=== PATIENT | female | born 1990 | race Caucasian/White ===

== ENCOUNTER 2022-10-16 15:48 | Emergency (ER) | payer BC, SELFPAY ==
--- OUTSIDE RECORDS SUMMARY | 2022-10-16 16:03 | XMS REPORT | Continuity of Care Document ---
:1990 Author Organization [facility] t Address [address] [facility]. [address] [place] [address] Care Team Providers Name Role Phone Asked, No Pcp Primary Care Physician Unavailable Bea BALLARD, Naima Tapia Attending Clinician Poncho BALLARD, Lilian Burks Attending Clinician [phone] ARBEN CRUZ Attending Clinician Unavailable Payers Payer Name Policy Type Policy Number Effective Date Expiration Date S ource Problems This patient has no known problems. Allergies, Adverse Reactions, Alerts This patient has no known allergies or adverse reactions. Family History Family Member Diagnosis Comments Start Date Stop Date Source Maternal grandfather Lung cancer Met [facility] Paternal grandmother Diabetes Meth [facility] Natural father Diabetes [facility] Social History Social Habit Start Date Stop Date Quantity Comments Source ASSERTION [facility] Gender identity [facility] Sexual orientation [facility] Alcohol intake 2022-09-14 2022-09-14 Current drinker [facility] 00:00:00 00:00:00 of [facility] (finding) History of Social 2022-09-14 2022-09-[address] function 00:00:00 00:00:00 Hospital Tobacco use and 2022-02-01 2022-02-01 Smokeless [facility] exposure 00:00:00 00:00:00 tobacco non-user Hospital Alcohol Comment 2018-04-12 2018-04-12 rarely [facility] 00:00:00 00:00:00 Hospital Sex Assigned At [birth year] [facility] 00:00:00 00:00:00 [facility] Smoking Status Start Date Stop Date Source Never smoked tobacco [facility] Medications Ordered Filled Start Stop Current Ordering Indication Dosage Frequency Signature Comments Components Source Medication Medication Date Date Medication? Clinician (SIG) Name Name ,ca Yes Take by Met jiang lc61/iron/f 6-[address] olic/dha 12:09: Hospita (WOMEN'S 20 l PLUS DHA ORAL) BLISOVI 2021- No 1{tbl} QD Take 1 Me thodi FE 1 mg-20 3-16 -[address] mcg (24)/75 00:00: 00:00 mouth Hosp anrdés mg (4) per 00 :00 daily. l tablet Vital Signs Vital Name Observation Time Observation Value Comments Source Body weight 2022-09-14 17:06:00 81.647 kg [facility] BMI 2022-09-14 17:06:00 30.90 kg/m2 [facility] Systolic blood 2022-09-14 17:06:00 117 mm[Hg] [facility] pressure Diastolic blood 2022-09-14 17:06:00 76 [facility] Heart rate 2022-09-14 17:06:00 96 /min [facility] Body height 2022-09-14 17:06:00 162.6 cm [facility] Procedures Procedure Date / Time Performing Clinician Source Performed POC , URINE 2022-09-15 15:56:03 Lilian Isaac [facility] , INITIAL 2022-09-14 17:36:00 Lilian Isaac [facility] SCREENING PROFILE [facility] THYROID CASCADE 2022-09-14 17:36:00 Lilian Isaac ospital PANEL/REFLEX Vitaliy INTERPRETATION 2022-09-14 17:36:00 Lilian Isaac ospital Vitaliy MICROSCOPIC EXAMINATION 2022-09-14 17:36:00 Lilian Isaac [facility] US TRANSVAGINAL 2022-09-14 17:30:04 Lilian Isaac [facility] GYNECOLOGIC PAP TEST 2022-02-01 20:59:00 Lilian Isaac [facility] (IMAGE-GUIDED)Vitaliy LIQUID-BASED PREPARATION AND HUMAN PAPILLOMAVIRUS (HPV) (APTIMA) WITH REFLEX TO HPV GENOTYPES 16 AND 18,45 Plan of Care Planned Activity Planned Date Details Comments Source Future Scheduled 2022-10-15 COVID-19 [facility] - Pfizer series) [code = COVID-19 VACCINE (3 - Pfizer series)] Future Scheduled 2022-10-15 INFLUENZA VACCINE Method [facility] Test 13:08:53 [code = INFLUENZA VACCINE] Future Scheduled 2022-10-15 Screening for [facility] Test 13:08:53 malignant neoplasm of cervix (procedure) [code = 007961552] Encounters Start End Encounter Admission Attending Care Care Encounter Source Date/Time Date/Time Type Type Clinicians Facility Department ID 2022-09-22 2022-09-22 Carrollrijoanne Figueredo, 1.2.840.1 [id number] Methodi 00:00:00 00:00:00 Orders Naima [address]563.1.[address] [place] 3.430.2.7 Hospit a .3.543744 l .8 2022-09-14 2022-09-14 Ancillary Poncho, 1.2.840.1 [id number] Methodi 12:20:00 12:50:00 Procedure Lilian 64514.1.1 657 [address] t Vitaliy 3.430.2.7 Hospit a .3.061562 l .8 2022-09-14 2022-09-14 Office Barcgrayson, 1.2.840.1 [id number] Methodi 12:00:00 12:42:38 Visit Lilian [address]5546.1.[address] Vitaliy 3.430.2.7 Hospit a .3.884635 l .8 2022-09-14 2022-09-14 Outpatient BARCIO, [facility] [id number] [address] [place] 00:00:00 00:00:[address] LILIAN [address] 2022-09-14 2022-09-14 Outpatient BARCIO, [facility] [id number] [address] [place] 00:00:00 00:00:[address]IL[address] 2022-09-14 2022-09-14 Travel 1.2.840.1 1.2.668.338 [id number] Methodi 00:00:00 00:00:[address] 3.430.2.7 0.2.7.3.698 Ho spita .3.874119 084.8 l .8 2022-09-01 2022-09-01 Travel 1.2.840.1 1.2.166.236 [id number] Methodi 00:00:00 00:00:[address] 3.430.2.7 0.2.7.3.698 Ho spita .3.141018 084.8 l .8 2022-02-01 2022-02-01 Office Gryesongrayson, .2.840.1 [id number] Methodi 14:30:00 14:39:53 Visit Lilian 82243.1.[address] Vitaliy 3.430.2.7 Hospit a .3.711098 l .8 2022-02-01 2022-02-01 Outpatient [facility] [id number] [place] 00:00:00 00:00:[address] LILIAN [address] 2022-02-01 2022-02-01 Travel 1.2.840.1 1.2.209.530 [id number] Methodi 00:00:00 00:00:[address] 3.430.2.7 0.2.7.3.698 Ho spita .3.625405 084.8 l .8 2021-08-03 2021-08-03 Outpatient [facility] [id number] [address] [place] 00:00:00 00:00:00 ARBEN Rhodes [facility] 2020-08-04 2020-08-04 Outpatient [facility] 00:00:00 00:00:00 - 3 Results Test Description Test Time Test Comments Results Result Comments Source Microscopic Examination 2022-09-16 14:36:00 Test Item Value Reference Range Interpretation Comme nts WBC, UA (test code = None seen See_Comment [Autom ated message] The 5821-4) system which ge nerated this result tra nsmitted reference range : 0 - 5 /hpf. The refer ence range was not used to interpret this result as normal/abnormal . RBC, UA (test code = None seen See_Comment [Autom ated message] The 30127-6) system which ge nerated this result tra nsmitted reference range : 0 - 2 /hpf. The refer ence range was not used to interpret this result as normal/abnormal . Epithelial cells (non 0-10 See_Comment [Auto mated message] The renal) (test code = system w [facility] generated 5787-7) this result tra nsmitted reference range : 0 - 10 /hpf. The refer ence range was not used to interpret this result as normal/abnormal . Casts (test code = None seen None seen /lpf 92904-4) Bacteria, UA (test Few None seen/Few code = 5769-5) DORIS (test code = DORIS) Performed at: [address] [place] [address] [id number] Director: Julio Bolanos MD, Phone: [phone] [id number] 14:36:00 Test Item Value Reference Range Interpretation Comments Interpretation (test Comment Not inf ected with code = 35409-9) HCV unless e dimas or acute infection issuspected (which may be delayed in an immunocompromis ed individual), or other evidence exists to indicate HCV infection. DORIS (test code = DORIS) Performed at: [address] [place] [address] [id number] Director: Julio Bolanos MD, Phone: [phone] [facility] PANEL/[id number] 14:36:00 Test Item Value Reference Interpretation Comments Range TSH (test 1.920 See_Comment No apparent thy roid disorder. code = [place] 244[address]-2) indicated. Inra re instances, Secondary Hypot hyroidism as well as SubclinicalHypo thyroidism have been reported i n some patients with normal TSH values. [Automated mess age] The system which generated this result transmitted ref erence range: 0.450 - 4.500 u IU/mL. The reference range was not used to interpret th is result as normal/abnormal . DORIS (test Performed at: code = - [facility] DORIS) [id number] [place], [place] [id number] Director: Julio Bolanos MD, Phone: [phone] [facility], initial screening [id number] 14:36:00 Test Item Value Reference Range Interpretation Comments Hepatitis B surface Negative Negative Ag (test code = 5196-1) Hepatitis C Ab (test Non Reactive Non Reactive code = 21902-9) RPR (test code = Non Reactive Non Reactive 32067-5) Rubella IgG antibody 1.55 See_Comment Non-im mune <0.90 (test code = 5334-8) Equivoc al 0.90 - 0.99 Immune >0. 99 [Automated message] The system which generated this result transmit parag reference range : Immune >0.99 index. The reference range was not used to interpret this result as normal/abnormal . ABO grouping (test O code = 883-9) Rh type (test code = Positive Please note: Prior 35556-1) records for thi s patient's ABO / Rh type are notavailable fo r additional verification. Antibody screen (test Negative Negative code = 890-4) HIV antigen/antibody Non Reactive Non Reactive HIV 4th gen (test code = Negativ eHIV-1/HIV- 50593-0) 2 antibodies an d HIV-1 p24 antig en were NOT detected.There is no laboratory evidence of HIV infection. Chlamydia Negative Negative trachomatis, LAINE (test code = 46168-8) Neisseria Negative Negative gonorrhoeae, LAINE (test code = 35098-7) WBC (test code = 11.3 See_Comment H [Automated 0018-2) message] The system which generated this result transmit parag reference range : 3.4 - 10.8 x10E3/uL. The reference range was not used to interpret this result as normal/abnormal . RBC (test code = 4.00 See_Comment [Automated 337-8) message] The system which generated this result transmit parag reference range : 3.77 - 5.28 x10E6/uL. The reference range was not used to interpret this result as normal/abnormal . HGB (test code = 11.6 g/dL 11.1-15.9 718-7) HCT (test code = 35.3 % 34.0-46.6 4544-3) MCV (test code = 88 fL 79-97 787-2) MCH (test code = 29.0 pg 26.6-33.0 785-6) MCHC (test code = 32.9 g/dL 31.5-35.7 786-4) RDW (test code = 13.2 % 11.7-15.4 788-0) Platelet count (test 331 See_Comment [Autom ated code = 777-3) message] The system which generated this result transmit parag reference range : 150 - 450 x10E3/uL. The reference range was not used to interpret this result as normal/abnormal . Neutrophils (test 71 % Not Estab. code = 770-8) Lymphocytes (test 21 % Not Estab. code = 736-9) Monocytes (test code 7 % Not Estab. = 5905-5) Eosinophils (test 0 % Not Estab. code = 713-8) Basophils (test code 1 % Not Estab. = 706-2) Neutrophils, absolute 8.1 See_Comment H [Auto mated (test code = 751-8) message] The system which generated this result transmit parag reference range : 1.4 - 7.0 x10E3/uL. The reference range was not used to interpret this result as normal/abnormal . Lymphocytes, absolute 2.3 See_Comment [Auto mated (test code = 731-0) message] The system which generated this result transmit parag reference range : 0.7 - 3.1 x10E3/uL. The reference range was not used to interpret this result as normal/abnormal . Monocytes, absolute 0.8 See_Comment [Automa parag (test code = 742-7) message] The system which generated this result transmit parag reference range : 0.1 - 0.9 x10E3/uL. The reference range was not used to interpret this result as normal/abnormal . Eosinophils, absolute 0.1 See_Comment [Auto mated (test code = 711-2) message] The system which generated this result transmit parag reference range : 0.0 - 0.4 x10E3/uL. The reference range was not used to interpret this result as normal/abnormal . Basophils, absolute 0.1 See_Comment [Automa parag (test code = 704-7) message] The system which generated this result transmit parag reference range : 0.0 - 0.2 x10E3/uL. The reference range was not used to interpret this result as normal/abnormal . Immature granulocytes 0 % Not Estab. (test code = 63281-8) Immature 0.0 See_Comment [Automated granulocytes, message] The absolute (test code = system which 71298-0) generated this result transmit parag reference range : 0.0 - 0.1 x10E3/uL. The reference range was not used to interpret this result as normal/abnormal . Specific gravity, 1.013 1.005-1.030 urine (test code = 5811-5) pH, urine (test code 7.0 5.0-7.5 = 5803-2) Color, UA (test code Yellow Yellow = 5778-6) Appearance (test code Clear Clear = 5767-9) WBC esterase, urine Negative Negative (test code = 5799-2) Protein, UA (test Negative Negative/Trace code = 77294-0) Glucose, urine (test Negative Negative code = 69047-7) Ketones, UA (test Negative Negative code = 2514-8) Occult blood, urine Negative Negative (test code = 5794-3) Bilirubin, UA (test Negative Negative code = 5770-3) Urobilinogen, UA 0.2 mg/dL 0.2-1.0 (test code = 37824-8) Nitrite, UA (test Negative Negative code = 5802-4) Microscopic See below: Microscopic was examination (test indicated and was code = 41175-2) performed. Urine culture, No growth , with GBS (test code = 630-4) DORIS (test code = DORIS) Performed at: [address] [place] [address] [id number] Director: Julio Bolanos MD, Phone: [phone] Lab Interpretation Abnormal (test code = 41604-6) [facility] , [id number] 15:56:03 Test Item Value Reference Range Interpretation Comments test urine, POC (test Positive code = 9945805) Internal QC (test code = 257) QC acceptable [facility] Pap Test (Image-guided), Liquid-based Preparation and Human Papillomavirus (HPV) (Aptima) With Reflex to HPV Genotypes 16 and 18,45 16 and 600303-60-99 22:08:00 Test Item Value Reference Range Interpretation Comments Diagnosis (test Comment NEGATIVE FOR code = 86179-3) INTRAEPITHEL IAL LESION OR MALIGNANCY. Specimen adequacy Comment Satisfacto ry for (test code = evaluation. 91103-8) Endocervical an d/or squamous metaplasticcell s (endocervical component) are present. Performed by: Comment Xavi colvin, (test code = Cytotechnologis t 08631-3) (ASCP) Comment (test . code = 55732-0) Note: (test code Comment The Pap sme ar is a = 9551406) screening test designed to aid in the detection ofpremalignant and malignant condi tions of the uterine cervix. It is not adiag nostic procedure and s hould not be used as the sole means of detectingcervic al cancer. Both false-positive and false-negative reports do occur. Test methodology Comment This liquid based (test code = ThinPrep(R) pap test 49151-8) was screened wi th theuse of an im age guided system. HPV Aptima (test Negative Negative This nuclei c acid code = 98485-9) amplificatio n test detects fourtee n high-riskHPV ty pes (16,18,31,33,35 ,39,45, 51,52,56,58,59, 66,68) withoutdifferen tiation . HPV genotype Comment Criteria not me t, HPV reflex (test code Genotype n ot = 8318) performed. DORIS (test code = Performed at: 01 DORIS) - [facility] [id number] [facility] [address] [id number] Director: Fabi Bhatt MD, Phone: [phone] med at: 02 - [address] [id number] Director: Julio Bolanos MD, Phone: [phone] med at: 03 - [facility] [id number] Director: Julio Bolanos MD, Phone: [phone] en Comment: No. of containers..01 ThinPrep Vial [facility]
[2022-10-16] MEDS ORDERED: ONDANSETRON 4 MG/2 ML VIAL ONE (16:13)
[2022-10-16] MEDS ORDERED: NA CHLORIDE 0.9% 1,000 ML ONE ×2 (16:13→18:22)
[2022-10-16] MEDS ORDERED: FENTANYL CITR 100 MCG/2 ML ONE (16:13)
[2022-10-16 16:19] LABS: Absolute Lymphocytes (CBC) 3.3 K/uL (0.7-4.9); Lymphocytes % 24.9 % (15.3-44.8); MCV 88.1 fL (80-100); MPV 7.8 fL (7.6-11.3)
[2022-10-16 17:10] LABS: Potassium 3.7 mEq/L (3.5-5.1)
--- NOTE | 2022-10-16 17:48 | RAD REPORT ---
EXAM DESCRIPTION: US - 1St Trimest Single 1St Fetus - 10/16/2022 4:37 pm CLINICAL HISTORY: with pelvic pain COMPARISON: None FINDINGS: The uterus measures 10 x 6 x 6 centimeters. A gestational sac is not seen within the endo metrium. The endometrium is heterogeneous and thickened measuring 2.2 centimeters. Right ovary normal in size and echotexture. Left ovary not seen. The right and left adnexa are unremarkable No significant free fluid is seen. IMPRESSION: These findings may indicate incomplete . Another consideration is that this is a n early intrauterine in which the gestational sac is not seen. This should all be correlate d clinically. Serial beta HCG levels and followup ultrasound in 1 week may be helpful
[2022-10-16] MEDS ORDERED: METHYLERGONOVINE 0.2MG/ML AMP IM ONE (17:54)
--- NOTE | 2022-10-16 18:01 | ER ---
Nurse's Notes [facility] Name: Jayshree Childs Age: 32 yrs Sex: Female : 1990 Arrival Date: 10/16/2022 Time: 15:48 Bed 2 Private MD: Diagnosis: Incomplete spontaneous with other complications-Bleeding, 12 WEEKS;Nausea;Anemia, unspecified Presentation: 10/16 16:00 Chief complaint: Patient states: Pt stated this is first and is approximately vg1 12 weeks and began to spot yesterday. Stated about 30 minutes ago "felt like was peeing" and looked down and noticed was bleeding. Pt denies ABD pain or cramping. Appears to have multiple large clots on underwear. Pt was seen walking into lobby hunched over holding ABD stating "heavy" vaginal bleeding, appeared to have blood on feet. Coronavirus screen: Vaccine status: Patient reports receiving the 2nd dose of the covid vaccine. Client denies travel out of the [place] in the last 14 days. Ebola Screen: Patient negative for fever greater than or equal to 101.5 degrees Fahrenheit, and additional compatible Ebola Virus Disease symptoms Patient denies exposure to infectious person. Patient denies travel to an Ebola-affected area in the 21 days before illness onset. Initial Sepsis Screen: Does the patient meet any 2 criteria? HR > 90 bpm. Does the patient have a suspected source of infection? No. Patient's initial sepsis screen is negative. Risk Assessment: Do you want to hurt yourself or someone else? Patient reports no desire to harm self or others. Onset of symptoms was October 16, 2022. 16:00 Method Of Arrival: Wheelchair vg1 16:00 Acuity: LIZBETH 3 vg1 Triage Assessment: 16:04 General: Appears distressed, uncomfortable, Behavior is cooperative, crying. Pain: vg1 Denies pain. Neuro: Level of Consciousness is awake, alert, obeys commands, Oriented to person, place, time, situation. Cardiovascular: Patient's skin is warm and dry. Respiratory: Airway is patent Respiratory effort is even, unlabored. GI: No signs and/or symptoms were reported involving the gastrointestinal system. : Reports vaginal bleeding that is with clots, heavy flow. Derm: Skin is pink, warm \\T\\ dry. Musculoskeletal: Circulation, motion, and sensation intact. BEHAVIOUR SUPPORT TEACHER: 16:04 1 vg1 16:09 1, Full Term 0, Premature 0, 0, Living 0 gilson Historical: - Allergies: 16:04 No Known Allergies; vg1 - Home Meds: 16:04 Vitamin Oral [Active]; vg1 - PMHx: 16:04 None; vg1 - PSHx: 16:04 None; vg1 - Immunization history:: Client reports receiving the 2nd dose of the Covid vaccine. - Social history:: Smoking status: Patient denies any tobacco usage or history of. Screenin:07 [facility] ED Fall Risk Assessment (Adult) History of falling in the last 3 months, vg1 including since admission No falls in past 3 months (0 pts). Abuse screen: Denies threats or abuse. Denies injuries from another. Nutritional screening: No deficits noted. Tuberculosis screening: No symptoms or risk factors identified. Assessment: 16:07 Obstetrical Assessment: General assessment: awake and alert, anxious, skin warm and vg1 dry. Reassessment: SEE TRIAGE. 18:11 Reassessment: pt up for discharge, currently waiting for IV fluids to complete. vg1 18:58 Reassessment: pt c/o lower ABD pain/cramping; provider notified. vg1 19:50 Reassessment: vag exam done large clot and gest sac expelled fundal massage done per Dr delon Quiñones pt reports dizziness with movement. 21:08 Reassessment: Patient appears in no apparent distress at this time. Patient denies pain kl at this time. Patient states feeling better. Patient states symptoms have improved. pad with minimal bleeding . Vital Signs: 16:00 BP 133 / 93; Pulse 104; Resp 20; Temp 99(O); Pulse Ox 100% on R/A; Weight 81.19 kg; vg1 Height 5 ft. 4 in. ; Pain 0/10; 17:25 BP 119 / 77; Pulse 92; Resp 18; Pulse Ox 100% on R/A; ap3 17:58 BP 117 / 74; Pulse 85; Pulse Ox 100% on R/A; ap3 18:20 BP 116 / 70 Supine; Pulse 89; vg1 18:22 BP 118 / 76 Sitting; Pulse 91; vg1 18:24 BP 121 / 86 Standing; Pulse 89; vg1 19:51 BP 119 / 70; Pulse 98; Resp 16; Temp 98.9(O); Pulse Ox 97% on R/A; kl 21:07 BP 107 / 63; Pulse 89; Pulse Ox 99% on R/A; kl 16:00 Body Mass Index 30.72 (81.19 kg, 162.56 cm) vg1 16:00 Pain Scale: Adult vg1 ED Course: 15:50 Patient arrived in ED. ts1 15:53 Aguilar Johnson PA is PHCP. cp 15:53 Aguilar Quiñones MD is Attending Physician. cp 15:54 Inserted saline lock: 20 gauge in right antecubital area, using aseptic technique. hb Blood collected. 15:55 Amy Burks, RN is Primary Nurse. vg1 16:02 Diet: Patient is NPO. mm9 16:04 Triage completed. vg1 16:04 Arm band placed on. vg1 16:07 Assist provider with pelvic exam: Set up pelvic tray. Performed by Aguilar Quiñones MD vg1 Patient tolerated well. 16:07 Patient has correct armband on for positive identification. Placed in gown. Bed in low vg1 position. Call light in reach. Side rails up X2. Client placed on continuous cardiac and pulse oximetry monitoring. NIBP monitoring applied. 16:39 1[address] Trimest Single 1St Fetus In Process Unspecified. EDMS 19:28 Initial lab(s) drawn, by me, sent to lab. wm 21:25 IV discontinued, intact, bleeding controlled, No redness/swelling at site. Pressure kl dressing applied. Administered Medications: 21:25 Discontinued: Lactated Ringers Solution IV 1000 ml IV at 150 ml/hr continuous kl 21:24 Discontinued: Pitocin IV 10 units IV at 150 ml/hr once kl 16:10 Drug: NS 0.9% IV 1000 ml Route: IV; Rate: 1 bolus; Site: right antecubital; ap3 18:00 Follow up: IV Status: Completed infusion; IV Intake: 1000ml vg1 16:10 Drug: fentaNYL (PF) IVP 25 mcg Route: IVP; Site: right antecubital; ap3 18:31 Follow up: Response: No adverse reaction; Marked relief of symptoms vg1 16:10 Drug: Ondansetron IVP 4 mg Route: IVP; Site: right antecubital; ap3 18:31 Follow up: Response: No adverse reaction vg1 18:24 Drug: Methylergonovine IM 0.2 mg Route: IM; Site: right deltoid; vg1 18:58 Follow up: Response: No adverse reaction vg1 18:31 Drug: NS 0.9% IV 1000 ml Route: IV; Rate: 1 bolus; Site: left antecubital; vg1 19:35 Follow up: IV Status: Completed infusion; IV Intake: 1000ml kl 18:58 Drug: fentaNYL (PF) IVP 25 mcg Route: IVP; Site: left antecubital; vg1 21:25 Follow up: Response: No adverse reaction; Marked relief of symptoms kl 19:40 Drug: Pitocin IV 10 units {Note: 10 units pitocin in 1000cc LR.} Route: IV; Rate: 150 kl ml/hr; Site: left antecubital; 19:41 Drug: Lactated Ringers Solution IV 1000 ml Route: IV; Rate: 150 ml/hr; Site: left kl antecubital; 19:41 Drug: Oxytocin IM 10 units Route: IM; Site: left deltoid; kl 21:24 Follow up: Response: No adverse reaction; Marked relief of symptoms kl Medication: 16:07 VIS not applicable for this client. vg1 Intake: 18:00 IV: 1000ml; Total: 1000ml. vg1 19:35 IV: 1000ml; Total: 2000ml. kl Output: 19:54 Urine: 900ml (Voided); Total: 900ml. kl Outcome: 18:00 Discharge ordered by . gilson 21:26 Discharged to home via wheelchair. kl 21:26 Condition: improved 21:26 Discharge instructions given to patient, Instructed on discharge instructions, follow up and referral plans. medication usage, Demonstrated understanding of instructions, follow-up care, medications, Prescriptions given X 2. 21:30 Patient left the ED. Signatures: Dispatcher [employer] EDMS Archana Gayle RN RN kl Anderson, Corey, MD MD cha Page, Corey, PA PA cp Baxter, Heather, RN RN hb Prokisch, Amanda, RN RN ap3 Amy Burks RN RN vg1 Mitali Ryan Maria mm9 Audra Macedo, IFEOMA PAS ts1
--- NOTE | 2022-10-16 18:01 | EDPHYS ---
Physician Documentation [facility] Name: Jayshree Childs Age: 32 yrs Sex: Female : 1990 Arrival Date: 10/16/2022 Time: 15:48 Bed 2 Private MD: ED Physician Aguilar Quiñones HPI: 10/16 16:09 This 32 yrs old Female presents to ER via Wheelchair with complaints of gilson Vaginal Bleeding, + Preg <12wks. 16:09 The patient presents to the emergency department with vaginal bleeding, that is heavy. gilson The estimated gestational age is 12 weeks. course: care: private OB physician. Previous pregnancies: the patient has never been . Associated signs and symptoms: The patient has no apparent associated signs or symptoms. The patient has not experienced similar symptoms in the past. SEO ANALYST: 16:04 1 vg1 16:09 1, Full Term 0, Premature 0, 0, Living 0 gilson Historical: - Allergies: 16:04 No Known Allergies; vg1 - Home Meds: 16:04 Vitamin Oral [Active]; vg1 - PMHx: 16:04 None; vg1 - PSHx: 16:04 None; vg1 - Immunization history:: Client reports receiving the 2nd dose of the Covid vaccine. - Social history:: Smoking status: Patient denies any tobacco usage or history of. ROS: 16:10 Positive for vaginal bleeding. gilson 16:10 Constitutional: Negative for fever, chills, and weight loss, Eyes: Negative for injury, pain, redness, and discharge, ENT: Negative for injury, pain, and discharge, Neck: Negative for injury, pain, and swelling, Respiratory: Negative for shortness of breath, cough, wheezing, and pleuritic chest pain, Abdomen/GI: Negative for abdominal pain, nausea, vomiting, diarrhea, and constipation, Back: Negative for injury and pain, MS/Extremity: Negative for injury and deformity, Skin: Negative for injury, rash, and discoloration, Neuro: Negative for headache, weakness, numbness, tingling, and seizure, Psych: Negative for depression, anxiety, suicide ideation, homicidal ideation, and hallucinations, Allergy/Immunology: Negative for hives, rash, and allergies, Endocrine: Negative for neck swelling, polydipsia, polyuria, polyphagia, and marked weight changes, Hematologic/Lymphatic: Negative for swollen nodes, abnormal bleeding, and unusual bruising. 16:10 Neck: Positive for 16:10 Cardiovascular: Positive for palpitations. 16:10 : Positive for vaginal bleeding. Exam: 16:10 Constitutional: This is a well developed, well nourished patient who is awake, alert, gilson and in no acute distress. Head/Face: Normocephalic, atraumatic. Eyes: Pupils equal round and reactive to light, extra-ocular motions intact. Lids and lashes normal. Conjunctiva and sclera are non-icteric and not injected. Cornea within normal limits. Periorbital areas with no swelling, redness, or edema. ENT: Nares patent. No nasal discharge, no septal abnormalities noted. Tympanic membranes are normal and external auditory canals are clear. Oropharynx with no redness, swelling, or masses, exudates, or evidence of obstruction, uvula midline. Mucous membranes moist. Neck: Trachea midline, no thyromegaly or masses palpated, and no cervical lymphadenopathy. Supple, full range of motion without nuchal rigidity, or vertebral point tenderness. No Meningismus. Chest/axilla: Normal chest wall appearance and motion. Nontender with no deformity. No lesions are appreciated. Cardiovascular: Regular rate and rhythm with a normal S1 and S2. No gallops, murmurs, or rubs. Normal PMI, no JVD. No pulse deficits. Respiratory: Lungs have equal breath sounds bilaterally, clear to auscultation and percussion. No rales, rhonchi or wheezes noted. No increased work of breathing, no retractions or nasal flaring. Abdomen/GI: Soft, non-tender, with normal bowel sounds. No distension or tympany. No guarding or rebound. No evidence of tenderness throughout. Back: No spinal tenderness. No costovertebral tenderness. Full range of motion. Skin: Warm, dry with normal turgor. Normal color with no rashes, no lesions, and no evidence of cellulitis. MS/ Extremity: Pulses equal, no cyanosis. Neurovascular intact. Full, normal range of motion. Neuro: Awake and alert, GCS 15, oriented to person, place, time, and situation. Cranial nerves II-XII grossly intact. Motor strength 5/5 in all extremities. Sensory grossly intact. Cerebellar exam normal. Normal gait. 16:10 : CVA tenderness, is absent, Pelvic Exam: Speculum exam: moderate bleeding, bimanual exam reveals os that is closed, discharge, is not appreciated, the nurse was present for the exam, Rectal exam: is not applicable, Sexual behavior: the patient is sexually active, and reports a single partner. Vital Signs: 16:00 BP 133 / 93; Pulse 104; Resp 20; Temp 99(O); Pulse Ox 100% on R/A; Weight 81.19 kg; vg1 Height 5 ft. 4 in. ; Pain 0/10; 17:25 BP 119 / 77; Pulse 92; Resp 18; Pulse Ox 100% on R/A; ap3 17:58 BP 117 / 74; Pulse 85; Pulse Ox 100% on R/A; ap3 18:20 BP 116 / 70 Supine; Pulse 89; vg1 18:22 BP 118 / 76 Sitting; Pulse 91; vg1 18:24 BP 121 / 86 Standing; Pulse 89; vg1 19:51 BP 119 / 70; Pulse 98; Resp 16; Temp 98.9(O); Pulse Ox 97% on R/A; kl 21:07 BP 107 / 63; Pulse 89; Pulse Ox 99% on R/A; kl 16:00 Body Mass Index 30.72 (81.19 kg, 162.56 cm) vg1 16:00 Pain Scale: Adult vg1 MDM: 16:00 Patient medically screened. [facility] 16:12 Data reviewed: vital signs, nurses notes, lab test result(s), radiologic studies, gilson ultrasound. 10/16 16:01 Order name: Abo/rh Typing; Complete Time: 16:40 [facility] 10/16 16:01 Order name: Basic Metabolic Panel; Complete Time: 17:16 [facility] 10/16 16:01 Order name: CBC with Diff; Complete Time: 16:40 [facility] 10/16 16:01 Order name: Quantitative Hcg; Complete Time: 17:16 [facility] 10/16 19:11 Order name: CBC with Diff; Complete Time: 19:54 [facility] 10/16 16:39 Order name: 1St Trimest Single 1St Fetus; Complete Time: 17:54 EDMS 10/16 16:01 Order name: IV Saline Lock; Complete Time: 16:01 [facility] 10/16 16:01 Order name: Labs collected and sent; Complete Time: 16:15 [facility] 10/16 16:01 Order name: NPO; Complete Time: 16:01 gilson 10/16 18:00 Order name: Orthostatics; Complete Time: 18:31 gilson 10/16 19:27 Order name: Misc. Order: POC TO LAB; Complete Time: 19:31 gilson Administered Medications: 21:25 Discontinued: Lactated Ringers Solution IV 1000 ml IV at 150 ml/hr continuous kl 21:24 Discontinued: Pitocin IV 10 units IV at 150 ml/hr once kl 16:10 Drug: NS 0.9% IV 1000 ml Route: IV; Rate: 1 bolus; Site: right antecubital; ap3 18:00 Follow up: IV Status: Completed infusion; IV Intake: 1000ml vg1 16:10 Drug: fentaNYL (PF) IVP 25 mcg Route: IVP; Site: right antecubital; ap3 18:31 Follow up: Response: No adverse reaction; Marked relief of symptoms vg1 16:10 Drug: Ondansetron IVP 4 mg Route: IVP; Site: right antecubital; ap3 18:31 Follow up: Response: No adverse reaction vg1 18:24 Drug: Methylergonovine IM 0.2 mg Route: IM; Site: right deltoid; vg1 18:58 Follow up: Response: No adverse reaction vg1 18:31 Drug: NS 0.9% IV 1000 ml Route: IV; Rate: 1 bolus; Site: left antecubital; vg1 19:35 Follow up: IV Status: Completed infusion; IV Intake: 1000ml kl 18:58 Drug: fentaNYL (PF) IVP 25 mcg Route: IVP; Site: left antecubital; vg1 21:25 Follow up: Response: No adverse reaction; Marked relief of symptoms kl 19:40 Drug: Pitocin IV 10 units {Note: 10 units pitocin in 1000cc LR.} Route: IV; Rate: 150 kl ml/hr; Site: left antecubital; 19:41 Drug: Lactated Ringers Solution IV 1000 ml Route: IV; Rate: 150 ml/hr; Site: left kl antecubital; 19:41 Drug: Oxytocin IM 10 units Route: IM; Site: left deltoid; kl 21:24 Follow up: Response: No adverse reaction; Marked relief of symptoms kl Disposition Summary: 10/16/22 18:00 Discharge Ordered Location: Home gilson Problem: new gilson Symptoms: have improved gilson Condition: Stable gilson Diagnosis - Incomplete spontaneous with other complications - Bleeding, 12 WEEKS gilson - Nausea gilson - Anemia, unspecified gilson Followup: gilson - With: Private Physician - When: 2 - 3 days - Reason: Recheck today's complaints, Continuance of care, Re-evaluation by your physician Discharge Instructions: - Discharge Summary Sheet gilson - Anemia gilson - Miscarriage gilson - Miscarriage, [id number] gilson - Managing Loss [facility] Forms: - Work release form kl - Medication Reconciliation Form [facility] - Thank You Letter [facility] - Antibiotic Education gilson - Prescription Opioid Use [facility] - [email or web address] [facility] Prescriptions: - Methergine 0.2 mg Oral tablet - take 1 tablet by ORAL route every 6 hours for 1 day; 75 tablet; Refills: 0, [facility] Product Selection Permitted - ondansetron 4 mg Oral Tablet,disintegrating - take 1 tablet by ORAL route every 6-8 hours for 4 days; 20 tablet; Refills: 0, [facility] Product Selection Permitted Signatures: Dispatcher [employer] EDArchana Luo RN Aguilar Bai MD MD cha Prokisch, Amanda RN RN ap3 Amy Burks RN RN vg1 Corrections: (The following items were deleted from the chart) 16:38 16:02 Transvaginal Ob+US.[email or web address].ROM ordered. EDMA VANESSAMS
[2022-10-16] MEDS ORDERED: OXYTOCIN 10 UNIT/ML ML ONE (19:33)
[2022-10-16] MEDS ORDERED: Ringers Lactate 1,000 ML IV ONE (19:37)
[2022-10-16 19:47] LABS: Absolute Lymphocytes (CBC) 2.3 K/uL (0.7-4.9); Hematocrit 29.7 % (36.0-45.0); Lymphocytes % 16.7 % (15.3-44.8); MCV 88.5 fL (80-100); RBC Red Blood Cell Count 3.36 M/uL (3.86-4.86)
[2022-10-16 22:09] VITALS: TEMP 98.9
[2022-10-16 22:10] VITALS: BP 107/63; O2SAT 99
== END 2022-10-16 21:30 | disposition home or self-care (01) ==
LOC: ER 15:48
DX: O03.39 Incomplete spontaneous abortion with other complications (principal); R11.0 Nausea; D64.9 Anemia, unspecified
CPT/HCPCS: 85025 ×2; 80048; 36415; 86900; 86901; 84702; 76801; 96372; 99285; J2210; J2590; J3010; J2405; J7120; J7030 ×2